=== PATIENT | female | born 1950 | race Caucasian/White ===

== ENCOUNTER 2025-02-22 12:20 | Outpatient (AMB) | payer MEDICARE, SELFPAY ==
--- NOTE | 2025-02-22 12:32 | A.OFFPC_ITS ---
Vital Signs 02/22/25 12:35 Height 4 ft 10.66 in Weight 240 lb 6 oz BMI 49.1 BP 132/84 Blood Pressure Location Rt brachial Position Sitting Respiration 16 Pulse 78 Pulse Source Pulse Oximeter Temp 98.1 F Temp Source Oral Pulse Oximetry (%) 98 Oxygen Delivery Method Room Air Intake Visit Reasons: BP/Allergies/thyroid issues/kidney problem Intake Note: New patient visit Certified Alcohol Drug Counselor Required: No Allergies iodine Allergy (Severe, Verified 02/22/25 13:06) Hives povidone-iodine (From Betadine) Allergy (Severe, Verified 02/22/25 13:06) Rash adhesive Allergy (Unknown, Verified 02/22/25 13:06) black dots Medication List - Last Reconciled 02/21/25 by Aracelis Grant HUMAN PERFORMANCE PROFESSOR- alendronate 70 mg PO QWEEK amlodipine 5 mg PO QPM desloratadine 5 mg PO DAILY doxazosin 4 mg PO DAILY levothyroxine (Synthroid) 75 mcg PO DAILY montelukast 10 mg PO BEDTIME olmesartan 20 mg PO DAILY Tobacco use date assessed: 02/22/25 Fall risk assessment: 2 + Falls in past year (Fell in September on the steps another fall 5 weeks ago) Last assessed Fall Risk: 02/22/25 Dental Screening Dental Screen Date: 02/22/25 Did you have a dental visit in the last 12 months?: Yes Did you have a dental problem in the last 6 months where you did not have access to dental care?: No Was dental information given to patient?: Patient has dentist HPI HPI Comments History of Present Illness Details 74 y/o F with osteoporosis, hypothyroid, HTN, seasonal allergies, obesity, hx L rotator cuff tear, HLD, CKD3 with secondary hyperparathyroidism, Anemia of CKD, HLD, IFG , venous insuff SurgHx: s/p abd surgery for endometriosis, CSF leak w/ repair 1990, [facility], L greater caphonouc vein ablation, R caphonouc VV ablation 2023 FHx: Mom HTN, stroke; Dad parietal gland cancer, htn, stroke, SocHx: moved from [place], moved here to be with best friend, lives w/ Dog; retired worked in IT Health Maintenance: See scanned preventative medicine assessment with personalized health plan and screening schedule. Colon: cologaurd negative 07/28/2023 Mammo DEXA 07/2022 PAP Vaccines: Flu 2024, Tdap 2010 * - She received a pneumonia vaccine in Ma y 2022 but is unsure if it was Pneumovax or Prevnar 13. AAA screen EKG: Cook Sta of Care: Optho glasses Chiro Renal* Visual Acuity: Hearing Screening: ACP: Dietary/Nutrition/Exercise Edu provided: Y History of Present Illness The patient is a 74-year-old female presenting to establish care, discuss multiple medical issues, and obtain medication refills. Previous pcp records reviewed after visit Right shoulder pain: - The patient reports she fell about fiv e weeks ago after tripping over a step in her garage, landing on her right shoulder in a brick hallway. - She continues to experience tingling, although it has improved from the initial injury, which was severe enough that she could not reach or operate her car's turn signal with her right arm. - The pain was previously waking her up at night, but she is now able to sleep through the night. - She has a history of a rotator cuff te ar in the same shoulder last year. Musculoskeletal pain: - The patient has ongoing issues with he r right knee, which her previous doctor diagnosed as IT band syndrome pulling her kneecap after an x-ray was performed. - The knee is painful to the touch but o therwise fine. - She also notes weakness on the outside of her left leg, which becomes painful if she stands for a prolonged period. - Physical therapy was suggested by her prior physician at her last visit but was not initiated. Chronic medical conditions and medication management: - Past medical history is significant fo r hypothyroidism, hypertension, and a past diagnosis of osteoporosis. - She reports being diagnosed with chron ic kidney disease and has seen minimal positive change in her kidney numbers since drinking hydrogen-infused water. - She is currently taking amlodipine 5 m g, olmesartan 20 mg, doxazosin 4 mg, brand-name Synthroid 75 mcg, desloratadine 5 mg, and montelukast 10 mg. - She is not currently taking Fosamax 70 mg, which she stopped a couple of months ago due to a dental implant procedure & issues w/ her jaw. - She also uses fnek-mst-gdjiptn Nasacor t for allergies. - The patient is presenting for refills for all her current medications. Stress and related symptoms: - The patient reports being under signif icant stress for almost a year, related to moving across the country from [place] and issues with her new house. - She wonders if stress and high cortiso l levels are contributing to her tendinopathy. - She started taking cortisol-fighting g ummies about a week and a half ago and reports an improvement in nocturia, going from waking three times a night to not at all. Preventative Care: - The patient's last Tdap vaccine was in 2010, and she is now due. - She received a pneumonia vaccine in 2022 but is unsure if it was Pneumovax or Prevnar 13. Review of Systems - Musculoskeletal: Reports ongoing tingl ing in the right shoulder following a fall five weeks ago, which is improving. - Musculoskeletal: Reports right knee is painful to touch. - Musculoskeletal: Reports weakness in t he outside of the left leg and pain with prolonged standing. - Genitourinary: Reports history of noct uria (getting up to urinate up to three times a night), which has recently resolved. - Constitutional: Reports significant st ress but denies other constitutional symptoms. Physical Exam General: Well developed, well nourished, in no acute distress. Appears stated age. Obesity noted with BMI of 39.1. Head: Normocephalic, atraumatic. Eyes: Pupils are equal, round and reactive to light and accommodation. Conjunctivae are clear. Lungs: Clear to auscultation bilaterally. No rales, rhonchi or wheeze noted. Good air flow in all damon. Heart: Regular rate and rhythm. No murmurs, click, rubs or gallops are noted. Musculoskeletal: FROM R shoulder c/o pain w/ palpation over scap and deltoid normal strength, neurovasc intact; FROM bilat knees; normal strength, c/o pain w/ palp over lateral right thigh Pulses: Peripheral pulses are equal and palpable bilaterally. Extremities: No clubbing, cyanosis nor edema is noted. Psych: Mood and affect appropriate. Reports stress related to recent move and life changes. Results Pending Medical Decision Making The patient is a 74-year-old female here to establish care, presenting with multiple chronic conditions and acute musculoskeletal complaints. Given her reported kidney disease, nocturia, and use of supplemental cortisol fighting gummies, obtaining baseline labs including kidney function, electrolytes, and thyroid levels is essential before refilling her medications. This will allow for safe management and appropriate dose adjustments if necessary. For her musculoskeletal issues, including right shoulder pain post-fall and bilateral leg complaints suspected to be related to IT band syndrome, outpatient physical therapy is the most appropriate next step. A deferred order will be provided to accommodate her concerns about driving in inclement weather, allowing her to schedule it at her convenience. Home physical therapy was considered but outpatient was chosen per patient preference. Regarding health maintenance, her Tdap is out of date and was offered; however, she deferred it due to her current shoulder soreness. Her pneumonia vaccine history is unclear, Her medications will be reviewed and updated, with Fosamax marked as not currently being taken; given her reports of jaw issues from this medication, i will advise to stop. Can consider rheum or endocrine referral @ next visit. All other medications will be refilled once labs are reviewed. Plan 1. Establishing Care / Medication Manage ment - Will obtain baseline non-fasting labs today, including kidney function, electrolytes, and thyroid panel, to guide medication management. - Pending normal lab results, will send refills for amlodipine 5 mg, olmesartan 20 mg, doxazosin 4 mg, brand-name Synthroid 75 mcg, desloratadine 5 mg, and montelukast 10 mg. - DC Fosamax, as the patient is not curr ently taking it & had jaw issues - Will funeral pre arrangement counselor the patient to continue h er cortisol gummies and will re-evaluate based on lab results. 2. Musculoskeletal Pain (Shoulder And Kn ees/Legs) - Provided a deferred order for outpatie nt physical therapy for her right shoulder, right knee/IT band, and left leg weakness. - The patient will be given a printed co py of the order to schedule at her convenience when she is comfortable driving. - Discussed local physical therapy optio ns, including [facility] in [place] and [facility] in [place]. 3. Health Maintenance - The patient is due for a Tdap vaccine (last in 2010) but deferred it today due to right shoulder soreness. Patient Instructions - Go to the in-office lab today to have your blood drawn. You do not need to be fasting. - Your prescriptions will be refilled an d sent to your pharmacy by the end of the day, as long as your lab results are stable. We will contact you if there are any issues or changes needed. - Ask the front end developer designer for a printed order for physical therapy. You can call and schedule this at a facility of your choice when you are ready and the weather is better. The order is good for one year. - You chose to wait on getting your Tdap (tetanus) shot today because of your shoulder pain. We can do this at a future visit. - Continue taking the cortisol-fighting gummies. We will discuss this more after we see your lab results. - If you get sick or have an urgent need , you can use our walk-in clinics in [place] or [place]. Please also send a message through the patient portal or call the office for an appointment. - Please stop at the front end developer designer to sched ule your next follow-up appointment. - RTO 4 months for AWV sooner as needed, plan will be to see her twice per year as she does not drive in the snow. Consent The patient verbally consented to have blood work performed in the office today. Patient was informed and verbally consented to the use of an ambient scribe for clinic note documentation during this visit. Total time spent caring for the patient today was 60 minutes. This includes time spent before the visit reviewing the chart, time spent during the visit, and time spent after the visit on documentation, reviewing laboratory results, diagnostic imaging, medications, performing a medically necessary evaluation, counseling on diagnoses, care coordination, ordering appropriate tests, ordering appropriate medications, review of tests performed by other providers, reporting test results with the patient, communication with other healthcare providers. [facility] Medical History (Updated 02/22/25 @ 15:14 by MATILDA Melchor-ODALIS) Arthritis Endometriosis H/O thyroid disease Herniated cervical disc Hx of mammogram (~2022) Low TSH level Sinusitis Spine disorder Surgical History (Updated 02/22/25 @ 15:05 by MATILDA Melchor-ODALIS) H/O: hysterectomy History of abdominal surgery History of brain surgery Hx of colonoscopy (~2023) Family History (Updated 02/22/25 @ 13:48 by Jacy Hunt MA) Mother HTN (hypertension) Father HTN (hypertension) Cancer of parotid gland Social History (Updated 02/22/25 @ 13:49 by Jacy Hunt MA) Household Members: None Both parents involved: No Caregiver staying overnight: No Housing: House Are you a primary patient care representative to a significant other at home: No Do you presently have visiting nurse or other home services: No 75 years or older and lives alone: No Alcohol intake: never Patient Tobacco Use Status: Never used Tobacco e-Cigarette/Vaping Use: Never Used Second Hand Smoke Exposure: No service: No Current occupational status: retired Cognitive needs: No Hearing needs: No Vision needs: No Questionnaire PHQ-9 Over the last 2 weeks, how often have you been bothered by any of the following problems? 1. Little interest or pleasure in doing things: not at all 2. Feeling down, depressed, or hopeless: not at all 3. Trouble falling or staying asleep, or sleeping too much: not at all 4. Feeling tired or having little energy: not at all 5. Poor appetite or overeating: not at all 6. Feeling bad about yourself - or that you are a failure or have let yourself o r your family down: not at all 7. Trouble concentrating on things, such as reading the newspaper or watching television: not at all 8. Moving or speaking so slowly that other people could have noticed. Or the opposite - being so fidgety or restless that you have been moving around a lot more than usual: not at all 9. Thoughts that you would be better off or of hurting yourself in some way: not at all Total score: 0 Depression Screening Interpretation: Negative Depression Screening Done: Yes 28085 - PHQ-9 Billing: Yes Source: Developed by Drs. Bj Pena, Tanja Pederson, Cristian camp nd colleagues, with an educational justine from [employer]. Thrive Questionnaire Date Thrive assessed: 02/22/25 I am a: Patient What is your living situation today?: I have a steady place to live Within the past 12 months, did the food you bought not last and you didn't have the money to get more?: Never true Within the past 12 months, did you worry whether your food would run out before you got money to buy more?: Never true Do you have trouble paying for medicines?: No Do you have trouble getting transportation to medical appointments?: No Do you have trouble paying your heating and electricity bill?: No Do you have trouble taking care of your child, family member or friend?: No Do you have trouble with day-to-day activities such as bathing, preparing meals, shopping, managing finances, etc.?: No Are you currently unemployed and looking for a job?: No Are you interested in more education?: No Please select the resources that you would like help with: None Currently or been in a relationship where the following occur: No concerns reported THRIVE Score: 0 AUDIT C Alcohol Use Questionnaire (AUDIT-C) 1. How often do you have a drink containing alcohol?: Never 3. How often do you have six or more drinks on one occasion?: Never Total Score: 0 Score Reviewed/Action Taken: Yes FERNIE-7 AMB Questionnaire FERNIE-7 Date FERNIE - 7 assessed: 02/22/25 Feeling nervous, anxious, or on edge: 0 = Not at all Not being able to stop or control worryin = Not at all Worrying too much about different things: 0 = Not at all Trouble relaxin = Not at all Being so restless that it is hard to sit still: 0 = Not at all Becoming easily annoyed or irritable: 0 = Not at all Feeling afraid as if something awful might happen: 0 = Not at all Total FERNIE-7 score (0-4 normal; 5-9 mild; 10-14 moderate; 15-21 severe): 0 Source: Developed by Drs. Bj Pena, Tanja Pederson, Cristian Alfaro and colleagues, with an educational justine from [employer]. FERNIE-7 Assessment Billing FERNIE-7 Assessment Tool: FERNIE-7 Assessment 38974 Physical exam (Primary Care) Vital Signs: Last Vital Signs Temp 98.1 F 02/22/25 12:35 Pulse 78 02/22/25 12:35 Resp 16 02/22/25 12:35 BP 132/84 02/22/25 12:35 Pulse Ox 98 02/22/25 12:35 Oxygen Delivery Method Room Air 02/22/25 12:35 BMI result Body Mass Index 49.1 BMI Assessment/Plan discussion: High BMI High, discussed plan: lifestyle Tobacco/Smoking Status: Tobacco use Status Tobacco use date assessed 02/22/25 02/22/25 12:38 Patient Tobacco Use Status Never used Tobacco 02/22/25 12:38 e-Cigarette/Vaping Use Never Used 02/22/25 12:38 PHQ-9: PHQ-9 Score PHQ-9: Total score 0 02/22/25 13:49 Depression Screening Interpretation: Negative Thrive Assessment: Date of Thrive Assessment Date Thrive assessed 02/22/25 02/22/25 13:10 Currently or been in a relationship where the following occur: No concerns reported Coding Level of Care Code New Pt Level 5 (11715) Add On Problem Visit Only Diagnoses Encounter to establish care with new provider Z76.89 Acquired hypothyroidism E03.9 Hypothyroidism type: acquired Primary hypertension I10 Hypertension type: primary hypertension Fall, initial encounter W19.XXXA Encounter type: initial encounter Obesity, morbid, BMI 40.0-49.9 E66.01 Iliotibial band tendonitis of right side M76.31 History of rotator cuff tear Z87.39 Stage 3a chronic kidney disease N18.31 Chronic kidney disease stage 3 subtype: stage 3a (GFR 45-59) Secondary hyperparathyroidism (of renal origin) N25.81 Anemia in stage 3a chronic kidney disease N18.31; D63.1 Chronic kidney disease stage: stage 3 (moderate) Chronic kidney disease stage 3 subtype: stage 3a (GFR 45-59) Venous insufficiency I87.2 Prediabetes R73.03 History of bone density study Z92.89 Laboratory exam ordered as part of routine general medical examination Z00.00 Age-related osteoporosis without current pathological fracture M81.0 Osteoporosis type: age-related Presence of current pathological fracture: without current pathological fracture Additional Codes FERNIE-7 Assessment Billing - FERNIE-7 Assessment Tool: FERNIE-7 Assessment 86881 ([id number]) PHQ-9 - 42888 - PHQ-9 Billing: Yes ([id number]) Assessment & Plan Assessment & Plan (1) Encounter to establish care with new provider: Code(s): Z76.89 - Persons encountering health services in other specified circumstances (2) Hypothyroid: Code(s): E03.9 - Hypothyroidism, unspecified Category: Medical Qualifiers: Hypothyroidism type: acquired Qualified Code(s): E03.9 - Hypothyroidism, unspecified (3) HTN (hypertension): Code(s): I10 - Essential (primary) hypertension Category: Medical Qualifiers: Hypertension type: primary hypertension Qualified Code(s): I10 - Essential (primary) hypertension (4) Fall: Code(s): W19.XXXA - Unspecified fall, initial encounter Category: Medical Qualifiers: Encounter type: initial encounter Qualified Code(s): W19.XXXA - Unspecified fall, initial encounter (5) Obesity, morbid, BMI 40.0-49.9: Code(s): E66.01 - Morbid (severe) obesity due to excess calories Category: Medical (6) Iliotibial band tendonitis of right side: Comment: R knee Xray chondrocalcinosis and medial compartment narrowing Xray 08/22/24 Code(s): M76.31 - Iliotibial band syndrome, right leg Category: Medical (7) History of rotator cuff tear: Comment: Left Code(s): Z87.39 - Personal history of other diseases of the musculoskeletal system and connective tissue Category: Medical (8) CKD (chronic kidney disease) stage 3, GFR 30-59 ml/min: Comment: echogenic and mildly atrophic appearance of bilat kidneys ([place] 2023) Code(s): N18.30 - Chronic kidney disease, stage 3 unspecified Category: Medical Qualifiers: Chronic kidney disease stage 3 subtype: stage 3a (GFR 45-59) Qualified Code(s): N18.31 - Chronic kidney disease, stage 3a (9) Secondary hyperparathyroidism (of renal origin): Code(s): N25.81 - Secondary hyperparathyroidism of renal origin Category: Medical (10) Anemia in CKD (chronic kidney disease): Code(s): N18.9 - Chronic kidney disease, unspecified; D63.1 - Anemia in chronic kidney disease Category: Medical Qualifiers: Chronic kidney disease stage: stage 3 (moderate) Chronic kidney disease stage 3 subtype: stage 3a (GFR 45-59) Qualified Code(s): N18.31 - Chronic kidney disease, stage 3a; D63.1 - Anemia in chronic kidney disease (11) Venous insufficiency: Comment: s/p L greater caphonouc vein ablation, R caphonouc VV ablation 2023 Code(s): I87.2 - Venous insufficiency (chronic) (peripheral) Category: Medical (12) Prediabetes: Code(s): R73.03 - Prediabetes Category: Medical (13) History of bone density study: Onset Date: ~07/2022 Code(s): Z92.89 - Personal history of other medical treatment Category: Medical (14) Laboratory exam ordered as part of routine general medical examination: Code(s): Z00.00 - Encounter for general adult medical examination without abnormal findings Category: Medical (15) Osteoporosis: Code(s): M81.0 - Age-related osteoporosis without current pathological fracture Category: Medical Qualifiers: Osteoporosis type: age-related Presence of current pathological fracture: without current pathological fracture Qualified Code(s): M81.0 - Age- related osteoporosis without current pathological fracture Plan . Orders: Orders Vitamin B12 and Folate Today E03.9 - Hypothyroidism, unspecified, I10 - Essential (primary) hypertension, Z00.00 - Encounter for general adult medical examination without abnormal findings Vitamin D 25-OH Total Today E03.9 - Hypothyroidism, unspecified, I10 - Essential (primary) hypertension, Z00.00 - Encounter for general adult medical examination without abnormal findings PT Evaluation and Treatment Today M25.511 - Pain in right shoulder, M76.31 - Iliotibial band syndrome, right leg, M79.605 - Pain in left leg, W19.XXXA - Unspecified fall, initial encounter, Z87.39 - Personal history of other diseases of the musculoskeletal system and connective tissue Complete Blood Count no Diff Today E03.9 - Hypothyroidism, unspecified, I10 - Essential (primary) hypertension, Z00.00 - Encounter for general adult medical examination without abnormal findings Comprehensive Met. Panel Today E03.9 - Hypothyroidism, unspecified, I10 - Essential (primary) hypertension, Z00.00 - Encounter for general adult medical examination without abnormal findings Hemoglobin A1c Today E03.9 - Hypothyroidism, unspecified, I10 - Essential (primary) hypertension, Z00.00 - Encounter for general adult medical examination without abnormal findings Lipid Panel Today E03.9 - Hypothyroidism, unspecified, I10 - Essential (primary) hypertension, Z00.00 - Encounter for general adult medical examination without abnormal findings Microalbumin, Random (w Creat) Today E03.9 - Hypothyroidism, unspecified, I10 - Essential (primary) hypertension, Z00.00 - Encounter for general adult medical examination without abnormal findings TSH reflex Free T4 Today E03.9 - Hypothyroidism, unspecified, I10 - Essential (primary) hypertension, Z00.00 - Encounter for general adult medical examination without abnormal findings Medications: New Synthroid (levothyroxine) 75 mcg PO DAILY 90 tabs 0RF NS triamcinolone acetonide (Nasacort) administer into each nostril 1 spray intranasal DAILY 16.9 mL 0RF Patient Instructions: Walk-In Care (Urgent Care): We Make it Easy Walk-in for urgent medical issues such as: ? Seasonal Allergies ? Insect Bites ? Cough ? Diarrhea ? Acute Asthma Attacks ? Back, Knee or Joint Pain ? Ear Infection ? Fever without a Rash ? Headaches ? Nausea ? [place]man Eye, Rash or Skin Irritation ? Sore Throat ? Sports Physicals ? Vomiting Most insurances are accepted. Patients do not need to be part of the [facility] to seek care at the walk-in clinic. Locations [address] [place] [address] Open Tuesday through Tuesday 8am-5pm *Hours may vary due to staffing availability. To confirm Walk-In Care hours please call. [address] [place] [address] , [place] [address] ? [phone] [facility] in [place] provides services to ages 18 and over. Open Tuesday-Tuesday: 7 a.m. to 5 p.m. and Tuesday: 9 a.m. to 3 p.m.* *Hours may vary due to staffing availability. To confirm Walk-In Care hours in [place], please call [phone]. [address] [place] [address] ? [phone] [facility] in [place] provides services to ages 12 and over. Open Tuesday-Tuesday: 8 a.m. to 5 p.m. Hours may vary due to staffing availability. To confirm Walk-In Care hours in [place], please call [phone]. LABORATORY SERVICES: [facility] ? Primary Location [address] [place] [address] Tuesday through Tuesday 6:00 AM ? 5:00 PM Tuesday 7:00 AM ? 11:00 AM* [phone] The [facility] is centrally located near the front entrance of the [facility] for easy outpatient access. Convenient parking is provided for outpatients. *Hours may vary due to staffing availability. To confirm Laboratory hours for any location, please call [phone]. Offsite Location For your convenience, we offer offsite laboratory draw stations at the following locations: [address] [place], [place] [address]e ? [facility] [address] [facility], [address], [place] Tuesday through Tuesday 7:30 AM ? 1:00 PM* [phone] *Hours may vary due to staffing availability. To confirm Laboratory hours for any location, please call [phone]. [place] ? [facility] [address] [facility] [place] Tuesday through Tuesday 6:00 AM ? 3:30 PM* Tuesday 6:30 AM ? 3 PM* [phone] *Hours may vary due to staffing availability. To confirm Laboratory hours for any location, please call [phone]. 140 [facility] Tuesday through Tuesday 7:30 AM ? 4:00 PM* [phone] *Hours may vary due to staffing availability. To confirm Laboratory hours for any location, please call [phone] [place] [address] Tuesday through 9:00 AM ? 4:00 PM* *Hours may vary due to staffing availability. To confirm Laboratory hours for any location, please call [phone]. Appointments are not necessary. Walk-ins are welcome. Like all the departments throughout the [facility], our Lab undergoes frequent reviews to ensure the quality and accuracy of test results, and our staff takes special pride in its status as a nationally accredited facility. Patient Portal: [facility] ONE PATIENT. ONE RECORD. BETTER CARE. [facility] has a fully integrated, cutting- edge mobile electronic health information system that has revolutionized the way we care for our patients and manage our organization. This system improves communication and coordination enabling us to provide safe, higher-quality care, and an overall positive experience for staff and patients. Our first priority, as always, is to deliver the highest quality care possible. The system is running in the background supporting that priority. This portal is for all [facility] services and practices. If you are experiencing any technical difficulties with enrolling or logging into the Patient Portal please complete the [facility] Patient Portal Technical Support Form. [facility] now offers a new secure on-line interactive tool for patients to review their health information ? ?Patient Portal. This interactive web portal will enable patients and their families to take an active role in their care by providing easy, secure access to their health information via the internet. The Patient Portal provides patients with instant access to their health information, including laboratory results, medications, allergies, demographic information, visit history, and more. In addition to managing their own care, parents and health care proxies with authorized consent will appreciate the ability to access the records of those individuals for whom they provide care. Please note: if you wish to gain access (Proxy) to another patient?s portal, you will be required to come to the Medical Records Department in person at [facility]. Both the patient giving proxy access and the proxy will need to provide photo identification and complete the appropriate authorization. The Patient Portal also allows track their appointments online. The [facility] Patient Portal also saves patients time by allowing them to submit updates to their demographic and contact information prior to their visits. P ortal email notifications will also alert patients to any new activity on their portal, such as test results and new appointments. In order to initially enroll in the [facility] Patient Portal, you will need to enter some required information including the following: * your [facility] Medical Record number * your personal home email address * name * date of Please note: In order to enroll in the [facility] Patient Portal, we need to have your email address on file in your electronic medical record. ?The email address needs to be specific for one person (yourself) in order for your Portal enrollment to be successful. ?You can update your email address in person with our Registration staff when you are registering for a hospital visit. ?Otherwise, you will need to come to the Health Information Management (Medical Records) Department at [facility]. ?We are open from Tuesday ? Tuesday from 7:30 a.m. ? 4:30 p.m. ?You will be required to present a photo id. Once you have successfully enrolled in the Patient Portal, you will receive a one-time user id and password for the Portal, sent to your email address. ?This will allow you to log into the Patient Portal within 99 hrs and reset your own logon id and password, and define personal security questions. ?Once your permanent login and password have been set, you can log into the [facility] Patient Portal at any time via the blue button above or from the Portal Logon button on any page of the [facility] website. [facility] encourage all of our patients to enroll in Patient Portal as it presents a valuable opportunity for patients and their families to actively participate in their care and stay healthy Welcome to [facility]. ?We look forward to working with you.
[2025-02-22 12:35] VITALS: BP 132/84; PULSE 78; RESP 16; TEMP 36.7; O2SAT 98; BMI 49.1
--- OUTSIDE RECORDS SUMMARY | 2025-02-22 17:54 | XMS_ITS | Encounter Summary ---
Author Organization [facility] Health Address [address] [place] [address] Care Team Providers Care Life Specialist Name Role Phone Unavailable Primary Care Provider Unavailabl e Prior Encounters Date Type Department Care Team Description 03/04/2022 Travel 03/04/2022 11:00 AM PST Office Visit [facility] [address] [place] [address] , [address] [address] Gonsalo Tesfaye, TERENCE 02/26/2022 Travel 02/26/2022 12:30 PM PST Office Visit [facility] [address] [place] [address] [address] Gonsalo Tesfaye, TERENCE 02/18/2022 2:30 PM PST Office Visit [facility] [address] [address] Devendra Mora, TERENCE 02/17/2022 Travel 02/17/2022 1:30 PM PST Office Visit [facility] [address] [address] Gonsalo Tesfaye, TERENCE 02/12/2022 Travel 02/12/2022 12:30 PM PST Office Visit [facility] [address] , [address] [address] Sylvia Chandra RDH 10/29/2021 Travel 10/29/2021 2:00 PM PDT Office Visit [facility] [address] , [address] [place] [address] Gonsalo Tesfaye, DDTyshawn Last Filed Vital Signs Vital Sign Reading Time Taken Comments Blood Pressure 131/74 10/29/2021 2:07 PM PDT Pulse 79 10/29/2021 2:07 PM PDT Temperature - - Respiratory Rate - - Oxygen Saturation - - Inhaled Oxygen Concentration - - Weight - - Height - - Body Mass Index - - Plan of Treatment Not on file Procedures Procedure Name Priority Date/Time Associated Diagnosis Comments NC X-RAY Routine 03/04/2022 11:00 AM PST 13 CEMENT CROWN Routine 03/04/2022 11:00 AM PST 12 CEMENT CROWN Routine 03/04/2022 11:00 AM PST NC X-RAY Routine 03/04/2022 11:00 AM PST FINAL IMPRESSION Routine 02/26/2022 12:3 0 PM PST 13 TREATMENT OF ROOT CANAL OBSTRUCTION; NON-SURGICAL ACCESS Routine 02/18/2022 2:30 PM PST 13 PULP VITALITY TESTS Routine 2:30 PM PST LIMITED ORAL EVALUATION - PROBLEM FOCUSED Routine 02/18/2022 2:30 PM PST 13 INTRAORIFICE BARRIER Routine 02/19/20 2:30 PM PST 13 ENDODONTIC THERAPY, PREMOLAR TOOTH (EXCLUDING FINAL ROMAN CATHOLIC) Routine 02/18/2022 2:30 PM PST 13 CORE BUILDUP, INCLUDING ANY PINS WHEN REQUIRED Routine 02/17/2022 1:30 PM PST 12 CEREC ZIRC CROWNPOST Routine 02/18/20 1:30 PM PST 12 CORE BUILDUP, INCLUDING ANY PINS WHEN REQUIRED Routine 02/17/2022 1:30 PM PST 13 CEREC ZIRC CROWNPOST Routine 02/18/20 1:30 PM PST LL PERIODONTAL SCALING AND ROOT PLANING - FOUR OR MORE TEETH PER QUADRANT Routine 02/12/2022 12:30 PM PST ORAL HYGIENE INSTRUCTIONS Routine 2021 12:30 PM PST TOPICAL APPLICATION OF FLUORIDE VARNISH Routine 02/12/2022 12:30 PM PST LR PERIODONTAL SCALING AND ROOT PLANING - FOUR OR MORE TEETH PER QUADRANT Routine 02/12/2022 12:30 PM PST UL PERIODONTAL SCALING AND ROOT PLANING - FOUR OR MORE TEETH PER QUADRANT Routine 02/12/2022 12:30 PM PST UR PERIODONTAL SCALING AND ROOT PLANING - FOUR OR MORE TEETH PER QUADRANT Routine 02/12/2022 12:30 PM PST ADJUNCTIVE PRE-DIAGNOSTIC TEST THAT AIDS IN DETECTION OF MUCOSAL ABNORMALITIES Routine 10/29/2021 2:00 PM PDT INTRAORAL PHOTO Routine 10/29/2021 2:00 PM PDT INTRAORAL - COMPREHENSIVE SERIES OF RADIOGRAPHIC IMAGES Routine 10/29/2021 2:00 PM PDT PANORAMIC RADIOGRAPHIC IMAGE Routine 10/29/2021 2:00 PM PDT INTRAORAL PHOTO Routine 10/29/2021 2:00 PM PDT INTRAORAL PHOTO Routine 10/29/2021 2:00 PM PDT COMPREHENSIVE ORAL EVALUATION - NEW OR ESTABLISHED PATIENT Routine 10/29/2021 2:00 PM PDT INTRAORAL PHOTO Routine 10/29/2021 2:00 PM PDT Visit Diagnoses Not on file Insurance
--- OUTSIDE RECORDS SUMMARY | 2025-02-22 17:54 | XMS_ITS | Clinical Summary ---
Author Organization [facility] Address [address], [place] [address] Phone Care Team Providers Care Flight Dynamicist Name Role Phone Unavailable Primary Care Provider Unavailabl e Medications montelukast (SINGULAIR) 10 MG tablet 1Qam 10/14/2011 Active desloratadine (CLARINEX) 5 MG tablet 1Qam 10/14/2011 Active Multiple Vitamins-Mineral s (MULTIVITAMIN WITH MINERALS) tablet 1Qam 10/14/2011 Active doxazosin (CARDURA) 4 MG tablet 1 QD 3 06/17/2014 Active losartan (COZAAR) 100 MG tablet 1 QHS 2 06/17/2014 Active levothyroxine (SYNTHROID) 75 MCG tablet 1Qam 3 12/14/2013 Active triamcinolone (NASACORT AQ) 55 MCG/ACT nasal inhaler 2xQD 10/14/2011 Active Lorcaserin HCl (BELVIQ) 10 MG tablet 1 BID 02/21/2014 Active torsemide (DEMADEX) 5 MG tablet 1/2 -1 every other day 2 06/17/2014 Active nisoldipine (SULAR) 8.5 MG 24 hr tablet 1 q day 3 08/21/2014 Active Active Problems Problem Noted Date Diagnosed Date Proteinuria 06/17/2014 Overview (02/11/2018): Converted unresolved ICD9, potential mismatch. Secondary hyperparathyroidism of renal origin Morbid (severe) obesity due to excess calories 0 10/24/2012 Chronic kidney disease, stage 2 (mild) 2 Essential (primary) hypertension 10/20/2011 Hypothyroidism 10/20/2011 Edema 10/20/2011 Overview (02/11/2018): Converted unresolved ICD9, potential mismatch. Family History Medical History Relation Comments Family history unknown Relative Relation Status Comments Relative Social History Tobacco Use Types Packs/Day Years Used Date Smoking Tobacco: Never Assessed Comments Unknown Sex and Gender Information Value Date Recorded Sex Assigned at Not on file Legal Sex Female 10:43 AM [facility] Gender Identity Not on file Sexual Orientation Not on file Last Filed Vital Signs Vital Sign Reading Time Taken Comments Blood Pressure 122/64 06/17/2014 12:01 AM EDT Pulse 68 06/17/2014 12:01 AM EDT Temperature - - Respiratory Rate 16 06/17/2014 12:01 AM EDT Oxygen Saturation - - Inhaled Oxygen Concentration - - Weight 92.5 kg (204 lb) 06/17/2014 12:01 AM EDT Height 152.4 cm (5') 06/17/2014 12:01 AM EDT Body Mass Index 39.84 06/17/2014 12:01 AM EDT Plan of Treatment Not on file
--- OUTSIDE RECORDS SUMMARY | 2025-02-22 17:54 | XMS_ITS | Clinical Summary ---
Author Organization [facility] Health Address [address] [place] [address] Care Team Providers Care Chipper Name Role Phone Unavailable Primary Care Provider Unavailabl e Allergies Active Allergy Reactions Criticality Noted Date Comments Adhesive Tape-Silicones Rash High 02/01/2022 Other reaction(s): Blisters Cat Dander High 02/01/2022 Other reaction(s): Respiratory Reaction Dog Dander High 02/01/2022 Other reaction(s): Respiratory Reaction Grass Pollen High 02/01/2022 Other reaction(s): Respiratory Reaction House Dust Mite High 02/01/2022 Other reaction(s): Respiratory Reaction Iodine Dermatitis,Hives,Itc apolonia,Rash,Swelling Low 06/26/1984 Mold High 02/01/2022 Other reaction(s): Respiratory Reaction Medications amLODIPine (NORVASC) 10 mg tablet Take 10 mg by mouth 1 (one) time each day. 2 Active Synthroid 75 mcg tablet 2 Active losartan (COZAAR) 100 mg tablet 2 Active montelukast (SINGULAIR) 10 mg tablet 2 Active torsemide (DEMADEX) 5 mg tablet 2 Active triamcinolone (NASACORT) 55 mcg nasal inhaler Administer 2 sprays into affected nostril(s) 1 (one) time each day. Active sypvrwa-tkuq-uv uuf-npzm-ofoaqv 100 mg-150 mg- 50 mg-150 mg capsule Take by mouth. Activ e desloratadine (CLARINEX) 5 mg tablet Take 5 mg by mouth 1 (one) time each day. 0 Active doxazosin (CARDURA) 4 mg tablet Take 4 mg by mouth 1 (one) time each day. 0 Active losartan (COZAAR) 100 mg tablet Take 100 mg by mouth 1 (one) time each day. 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 Hypothyroidism due to acquired atrophy of thyroi d 02/01/2022 Lymphedema of both lower extremities 02/01/2022 Overview (02/17/2022): Take as needed torsemide. S/P total hysterectomy and bilateral salpingo-oo phorectomy 02/01/2022 Overview (02/17/2022): 12/1989 - hx of endometriosis. Congenital absence of one kidney 09/21/2021 Overview (02/12/2022): Has R FUNCTIONAL KIDNEY. Allergic rhinitis 09/21/2021 DDD (degenerative disc disease), lumbar 09/22/19 22 Overview (02/17/2022): L4 and L5 bulging discs. Managed by chiropractor Proteinuria 06/17/2014 Overview (02/17/2022): Converted unresolved ICD9, potential mismatch. Converted unresolved ICD9, potential mismatch. Hyperparathyroidism due to renal insufficiency 0 10/24/2012 Morbid (severe) obesity due to excess calories 0 10/24/2012 Morbid obesity with BMI of 45.0-49.9, adult 10/12 Overview (02/17/2022): Wt Readings from Last 3 Encounters: 02/01/22 104 kg (230 lb 3.2 oz) 09/21/21 106 kg (233 lb) BMI Readings from Last 3 Encounters: 02/01/22 46.49 kg/m 09/21/21 42.62 kg/m Benign hypertension 10/20/2011 Chronic kidney disease, stage 2 (mild) 2 Overview (02/12/2022): Due to only one function kidney (R). Hypothyroidism 10/20/2011 Edema 10/20/2011 Overview (02/17/2022): Converted unresolved ICD9, potential mismatch. Social History Tobacco Use Types Packs/Day Years Used Date Smoking Tobacco: Never Assessed Tobacco Cessation:Counseling Given: Not Answered Comments Unknown Sex and Gender Information Value Date Recorded Sex Assigned at Not on file Legal Sex Female 3:28 PM PDT Gender Identity Not on file Sexual Orientation Not on file Last Filed Vital Signs Vital Sign Reading Time Taken Comments Blood Pressure 131/74 10/29/2021 2:07 PM PDT Pulse 79 10/29/2021 2:07 PM PDT Temperature - - Respiratory Rate - - Oxygen Saturation - - Inhaled Oxygen Concentration - - Weight - - Height - - Body Mass Index - - Plan of Treatment Health Maintenance Due Date Last Done Comments Periodontal Maintenance 1950 Velscope Screening 05/01/2022 10/29/2021 Dental Oral Exam 05/02/2022 10/29/2021 Dental X-Ray: Bitewings 05/02/2022 10/29/2021 Scaling and Root Planing 02/27/2024 022, 02/12/2022, 02/12/2022, Additional history exists Dental X-Ray: Full Mouth 10/31/2024 10/30/2021, 10/12 Dental X-Ray: Panoramic 10/31/2024 10/30/2021, 10/29 Procedures Procedure Name Priority Date/Time Associated Diagnosis Comments UR PERIODONTAL SCALING AND ROOT PLANING - FOUR OR MORE TEETH PER QUADRANT Routine 02/12/2022 12:30 PM PST PANORAMIC RADIOGRAPHIC IMAGE Routine 10/29/2021 2:00 PM PDT ADJUNCTIVE PRE-DIAGNOSTIC TEST THAT AIDS IN DETECTION OF MUCOSAL ABNORMALITIES Routine 10/29/2021 2:00 PM PDT INTRAORAL - COMPREHENSIVE SERIES OF RADIOGRAPHIC IMAGES Routine 10/29/2021 2:00 PM PDT COMPREHENSIVE ORAL EVALUATION - NEW OR ESTABLISHED PATIENT Routine 10/29/2021 2:00 PM PDT from Last 3 Months or Most Recently Relevant to Health Maintenance Insurance PPO [place] [id number]
== END 2025-02-22 13:39 | disposition home or self-care (01) ==
LOC: HO.HMCFM 12:21
PROVIDERS: PCP Nurse Practitioner Family; Visit Provider Nurse Practitioner Family
DX: N18.31 Chronic kidney disease, stage 3a (principal); E66.01 Morbid (severe) obesity due to excess calories; Z68.42 Body mass index [BMI] 45.0-49.9, adult; I10 Essential (primary) hypertension; D63.1 Anemia in chronic kidney disease; E03.9 Hypothyroidism, unspecified; M76.31 Iliotibial band syndrome, right leg; N25.81 Secondary hyperparathyroidism of renal origin; I87.2 Venous insufficiency (chronic) (peripheral); R73.03 Prediabetes; M81.0 Age-related osteoporosis without current pathological fracture; Z87.39 Personal history of other diseases of the musculoskeletal system and connective tissue

== ENCOUNTER 2025-02-22 12:20 | Outpatient (REF) | payer MEDICARE, SELFPAY ==
[2025-02-22 17:45] LABS: Hematocrit 38.3 % (37.0-47.0); Hemoglobin 12.0 g/dl (12.0-16.0); Mean Corpuscular HGB Conc 31.3 g/dl (31.0-35.0); Mean Corpuscular Hemoglobin 29.4 pg (27.0-33.0); Mean Corpuscular Volume 93.9 fL (80.0-98.0); NRBC Abs Auto 0.000 X10*3/uL (0.0-0.012); NRBC Pct Auto 0.0 /100WBC (0.0-0.2); Platelet Count 254 X10*3/uL (160-400); Red Blood Count 4.08 X10*6/uL (4.20-5.50); White Blood Count 5.5 X10*3/uL (4.8-10.8)
[2025-02-22 18:02] LABS: Alanine Aminotransferase 9 U/L (0-31); Albumin Level 4.3 g/dL (3.5-5.0); Alkaline Phosphatase 73 U/L (39-117); Anion Gap 11 (12-20); Aspartate Amino Transferase 20 U/L (5-31); Blood Urea Nitrogen 18 mg/dL (9-16); Calcium 9.7 mg/dL (8.4-10.2); Carbon Dioxide 29 mmol/L (22-29); Chloride 105 mmol/L (96-108); Cholesterol 207 mg/dL (<200); Estimated Glomerular Filt Rate 42; HDL Cholesterol 64 mg/dL (>40); Potassium 3.9 mmol/L (3.3-5.1); Sodium 141 mmol/L (135-145); Total Protein 7.2 g/dL (6.5-8.0); Triglycerides 74 mg/dL (<150)
[2025-02-22 18:34] LABS: Folate 5.4 ng/mL (> or = 4.0); Vitamin B12 288 pg/mL (200-900)
== END 2025-02-22 12:21 | disposition home or self-care (01) ==
LOC: HO.WFDLDS 12:20
PROVIDERS: PCP Nurse Practitioner Family; Visit Provider Nurse Practitioner Family
DX: Z76.89 Persons encountering health services in other specified circumstances (principal); I10 Essential (primary) hypertension; E03.9 Hypothyroidism, unspecified; E66.01 Morbid (severe) obesity due to excess calories; M76.31 Iliotibial band syndrome, right leg; N18.31 Chronic kidney disease, stage 3a; D63.1 Anemia in chronic kidney disease; I87.2 Venous insufficiency (chronic) (peripheral); R73.03 Prediabetes; M81.0 Age-related osteoporosis without current pathological fracture; Z13.31 Encounter for screening for depression; Z13.39 Encounter for screening examination for other mental health and behavioral disorders; M25.511 Pain in right shoulder
CPT/HCPCS: 36415; 80053; 80061; 82306; 82607; 82746; 83036; 84443; 85027; 96127; 99202